=== PATIENT | male | born 1950 | race Caucasian/White ===

== ENCOUNTER 2019-06-19 10:20 | Day surgery (SDC) | payer OTHER, MEDICARE ==
[2019-06-16 16:12] VITALS: BMI 26.1
[2019-06-19 13:59] VITALS: TEMP 98.9
[2019-06-19 14:46] VITALS: BP 138/79; PULSE 83
--- NOTE | 2019-06-21 14:25 | PATH ---
Surgical Pathology Report Patient Name: ABELARDO FLOYD [facility]. Rec. #: [id number] /Age/Gender: 1950 (Age: 68) / M Account: [id number] Location: [facility]-ENDOSCOPY Taken: 06/19/2019 Received: 06/20/2019 Reported: 06/21/2019 Physicians: Stanislaw Vargas M.D. Specimen(s) Received A: DUODENUM B: STOMACH C: ESOPHAGUS D: ASCENDING COLON POLYP E: DESCENDING COLON POLYP F: RECTAL POLYP Clinical History History of colon polyps, iron deficiency anemia Postoperative diagnosis: Iron deficiency anemia, colon polyps, hemorrhoids Final Diagnosis ----- A. DUODENUM, BIOPSY: DUODENAL MUCOSA WITH FOCAL MILD NONSPECIFIC CHRONIC DUODENITIS. NO HISTOLOGIC EVIDENCE OF INTRAEPITHELIAL LYMPHOCYTOSIS. B. STOMACH, BIOPSY: GASTRIC MUCOSA WITH MILD CHRONIC GASTRITIS. IMMUNOSTAIN FOR H. PYLORI IS NEGATIVE. NEGATIVE FOR INTESTINAL METAPLASIA. C. ESOPHAGUS, BIOPSY: ESOPHAGEAL MUCOSA WITH CHANGES CONSISTENT WITH REFLUX ESOPHAGITIS. NEGATIVE FOR INTESTINAL METAPLASIA. NO HISTOLOGIC EVIDENCE OF EOSINOPHILIC ESOPHAGITIS. D. ASCENDING COLON POLYP, POLYPECTOMY: TUBULAR ADENOMA. E. DESCENDING COLON POLYP, POLYPECTOMY: TUBULAR ADENOMA. F. RECTAL POLYP, POLYPECTOMY: HYPERPLASTIC POLYP. ___ Electronically Signed Roosevelt Shields M.D. Gross Description A. Received in formalin, labeled "duodenum biopsy" are 2 fontaine, irregular portions of soft tissue averaging 0.3 cm. in greatest dimension. The specimens are submitted in toto in one cassette. B. Received in formalin, labeled "stomach" are 2 fontaine, irregular portions of soft tissue measuring 0.2 and 0.3 cm. in greatest dimension. The specimens are submitted in toto in one cassette. C. Received in formalin, labeled "esophagus biopsy" are 3 fontaine, irregular portions of soft tissue ranging from 0.2-0.6 cm. in greatest dimension. The specimens are submitted in toto in one cassette. D. Received in formalin, labeled "ascending colon biopsy" are 3 fontaine, irregular portions of soft tissue ranging from 0.1-0.5 cm. in greatest dimension. The specimens are submitted in toto in one cassette. E. Received in formalin, labeled "descending colon polyp biopsy" is a fontaine, irregular portion of soft tissue measuring 0.3 cm. in greatest dimension. The specimen is submitted in toto in one cassette. F. Received in formalin, labeled "rectal polyp biopsy" is a fontaine, irregular portion of soft tissue measuring 0.4 cm. in greatest dimension. The specimen is submitted in toto in one cassette. 06/20/[address] [facility]06/20/2019
== END 2019-06-19 14:35 | disposition home or self-care (01) ==
LOC: JASU-ENDO 10:20
PROVIDERS: ATTEND Internal Medicine Gastroenterology
PROC: 0DBP8ZX Excision of Rectum, Via Natural or Artificial Opening Endoscopic, Diagnostic (ICD-10-PCS; 2019-06-19)
PROC: 0DBM8ZX Excision of Descending Colon, Via Natural or Artificial Opening Endoscopic, Diagnostic (ICD-10-PCS; 2019-06-19)
PROC: 0DB98ZX Excision of Duodenum, Via Natural or Artificial Opening Endoscopic, Diagnostic (ICD-10-PCS; 2019-06-19)
PROC: 0DB68ZX Excision of Stomach, Via Natural or Artificial Opening Endoscopic, Diagnostic (ICD-10-PCS; 2019-06-19)
PROC: 0DB58ZX Excision of Esophagus, Via Natural or Artificial Opening Endoscopic, Diagnostic (ICD-10-PCS; 2019-06-19)
PROC: 0DBK8ZX Excision of Ascending Colon, Via Natural or Artificial Opening Endoscopic, Diagnostic (ICD-10-PCS; principal; 2019-06-19 12:00)
DX: D50.9 Iron deficiency anemia, unspecified (principal); D12.2 Benign neoplasm of ascending colon; D12.4 Benign neoplasm of descending colon; K62.1 Rectal polyp; K64.8 Other hemorrhoids; K29.80 Duodenitis without bleeding; K29.50 Unspecified chronic gastritis without bleeding; K21.0 Gastro-esophageal reflux disease with esophagitis; I10 Essential (primary) hypertension; E11.9 Type 2 diabetes mellitus without complications; E03.9 Hypothyroidism, unspecified; E06.3 Autoimmune thyroiditis; C91.10 Chronic lymphocytic leukemia of B-cell type not having achieved remission
CPT/HCPCS: 82962; 88305-TC; 88342-TC